=== PATIENT | male | born 1975 | race Caucasian/White ===

== ENCOUNTER 2023-05-27 14:55 | Emergency (ER) | payer OTHER, SELFPAY ==
[2023-05-27 15:01] VITALS: BP 152/100; PULSE 88; RESP 20; TEMP 36.6; O2SAT 98; BMI 36.3
--- NOTE | 2023-05-27 15:32 | XR_ITS ---
The [address] [address] Patient Name: MAURI RAMIREZ MRN: [id number] date: 1975 Sex: M Assigned Patient Location: ER Current Patient Location: ER Accession/Order Number: [id number] Exam Date: 05/27/2023 15:48 Report Date: 05/27/2023 16:18 At the request of: VANCE BRONSON Procedure: XR ribs RT min 3V w CXR1V EXAMINATION: XR ribs RT min 3V w CXR1V HISTORY: rib injury ; lower right rib pain after falling on corner of table 2 days ago COMPARISON: No relevant comparison available. FINDINGS: LUNGS: Underexpanded lungs with amount of stranding within lung bases. PLEURA: No pneumothorax, effusion, or pleural thickening. MEDIASTINUM: No visible mass or adenopathy. CARDIAC: No cardiomegaly or cardiac silhouette abnormality. RIBS: No appreciable fracture or bone lesion. OTHER: Negative. XR/XR ribs RT min 3V w CXR1V IMPRESSION: 1. No visible rib fracture. 2. Underexpanded lungs with trace amount of bibasilar atelectasis or possibly scarring. Electronically authenticated by: SANAZ JANSEN Date: 05/27/2023 16:18
[2023-05-27] MEDS: KETOROLAC TROMETHAMINE 60 MG/2 ML VIAL IM (15:42)
--- NOTE | 2023-05-27 16:36 | ED.GENADUL1 ---
HPI - General Adult General Chief complaint: Back Pain/Injury Stated complaint: POSSIBLE BROKEN RIB Time Seen by Provider: 05/27/23 15:07 Source: patient Mode of arrival: walk-in Limitations: no limitations History of Present Illness HPI narrative: Patient is a 47-year-old male who had a traumatic anterior chest wall/rib injury Thursday. Patient stated that he was drinking excessively, had tripped, falling, accidentally hit his cat and hit his right anterior ribs. Patient was on medication when this occurred. 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 Patient had short travel from medication. Patient is a nonsmoker, no other risk factors for deep vein thrombosis or PE. Patient's having pain with deep inspiration to the right anterior chest wall, it is very reproducible. Patient has no bruising or ecchymosis to the area. Patient took 200 mg ibuprofen yesterday and this morning. Patient's been using some ice, no heat. No other acute complaints. Patient stated he would not be here for wasn't for his concerned about rib fracture and puncture long and forced him to come to the Emergency Room for evaluation. Patient does have evidence of mild splinting once in the chair prior to examination is talking to him about HPI. . All systems are negative except as noted/marked. All systems reviewed and otherwise negative. . Nurses note and vital signs reviewed and patient is not hypoxic. General: The patient appears well and in no apparent distress. Patient is resting comfortably on cart. Patient is not toxic, lethargic, or listless Skin: Warm, dry, no pallor noted. There is no rash noted. No petechiae, purpura. Patient has multiple tattoos and piercings, no secondary signs of infection. No ecchymosis to the anterior, lateral posterior chest wall. Head: Normocephalic, atraumatic Eye: Normal conjunctiva, no drainage, EOMI. PERRL Ears, Nose, Mouth, and Throat: oral mucosa is moist. Nares patent.. Cardiovascular: Regular Rate and Rhythm, no murmur, gallop, rub. Moderate to severe reproducible tenderness to palpation to the right lower anterior chest wall, midclavicular line, over ribs approximately 6 through 10. No crepitus. No ecchymosis. Mild to moderate tenderness to palpation to the right lateral chest wall around ribs 6 through 10. No ecchymosis. No posterior chest wall pain. No left-sided chest wall pain. No midepigastric pain. No ecchymosis to the abdomen, negative Culens sign and Phren sign. Respiratory: Patient is in no distress, no accessory muscle use, lungs are clear to auscultation, no wheezing, rales or rhonchi; Patient has mod splinting with deep inspiration. Back: non-tender, no CVA tenderness bilaterally to percussion. No CT LS midline pain GI: soft, no tenderness to palpation, no masses appreciated. No rebound, guarding, or rigidity noted. No flank pain bilateral, No distention Musculoskeletal: Patient has full range of motion of all of the extremities, no motor, sensory, or focal neurological deficits Neurological: A&O x3, normal speech Psychiatric: Cooperative Related Data Previous Rx's Medication Instructions Recorded hydrocodone 5 mg-acetaminophen 325 1 tab PO Q4H PRN pain #10 tabs 05/27/23 mg tablet ibuprofen 800 mg tablet 800 mg PO Q8H PRN pain #30 tabs 05/27/23 Allergies Allergy/AdvReac Type Severity Reaction Status Date / Time Penicillins Allergy Intermediate Verified 05/27/23 15:05 Exam Constitutional Vital Signs, click to edit/add: Last Vital Signs Temp 98 F 05/27/23 15:01 Pulse 84 05/27/23 17:06 Resp 20 05/27/23 17:06 BP 119/88 05/27/23 17:06 Pulse Ox 99 05/27/23 17:06 O2 Del Method Room Air 05/27/23 17:06 Course Vital Signs Vital signs: Vital Signs Temperature 98 F 05/27/23 15:01 Pulse Rate 88 05/27/23 15:01 Respiratory Rate 20 05/27/23 15:01 Blood Pressure 152/100 H 05/27/23 15:01 Pulse Oximetry 98 05/27/23 15:01 Oxygen Delivery Method Room Air 05/27/23 15:01 Temperature 98 F 05/27/23 15:01 Pulse Rate 84 05/27/23 17:06 Respiratory Rate 20 05/27/23 17:06 Blood Pressure 119/88 05/27/23 17:06 Pulse Oximetry 99 05/27/23 17:06 Oxygen Delivery Method Room Air 05/27/23 17:06 Medical Decision Making MDM Narrative Medical decision making narrative: Chest x-ray shows no acute fracture, dislocation, no signs of pneumothorax. No signs of lung contusion. Education on room injury costochondritis was done at bedside. Patient's injury occurred Thursday evening. Patient continues noise, anti-inflammatories, patient was sent home with a prescription for a few [address] as well. Patient was also given incentive spirometer. Patient will follow-up with PCP. No questions at discharge. Patient is aware that this may hurt for 2 or 3 weeks. Patient is to return if any other significant abnormalities. Discharge Plan Discharge Chief Complaint: Back Pain/Injury Clinical Impression: Traumatic injury of rib, Chest wall pain, Costochondritis Patient Disposition: Home, Self-Care Prescriptions / Home Meds: New ibuprofen 800 mg tablet 800 mg PO Q8H PRN (Reason: pain) Qty: 30 0RF Rx Instructions: with food and drink hydrocodone-acetaminophen 5-325 mg tablet 1 tab PO Q4H PRN (Reason: pain) Qty: 10 0RF Instructions: Costochondritis (ED), Chest Wall Pain (ED), Rib Contusion (ED) Additional Instructions: Ice 20 minutes on, 20 minutes off. Alternate Tylenol and Motrin 800 mg for pain. Use the narcotic pain medication if needed for severe pain, do not take [address] with Tylenol, he could accident take too much Tylenol together. Follow-up with PCP. He'll most likely have pain for the next 2-3 weeks. Use incentive spirometer every hour while awake. Stand Alone Forms: Portal Instructions Referrals: MIGUEL RICHARDSON [Primary Care Provider] - 1 week Discharge Date/Time: 05/27/23 17:09
[2023-05-27 17:06] VITALS: BP 119/88; PULSE 84; RESP 20; O2SAT 99
== END 2023-05-27 17:09 | disposition home or self-care (01) ==
PROVIDERS: Emergency Provider Emergency Medicine; PCP Nurse Practitioner Family
DX: R07.89 Other chest pain (principal); S29.9XXA Unspecified injury of thorax, initial encounter; M94.0 Chondrocostal junction syndrome [Tietze]; W01.10XA Fall on same level from slipping, tripping and stumbling with subsequent striking against unspecified object, initial encounter
CPT/HCPCS: 71101; 94667; 96372; 99284